=== PATIENT | female | born 1950 | race African-American/Black ===

== ENCOUNTER 2021-04-02 19:32 | Inpatient (IN) | payer OTHER ==
[2021-04-02 21:19] LABS: BASO % 0.8 % (0-2.0); EOS % 0.5 % (0-4.5); HEMATOCRIT 26.7 % (32.4-45.2); HEMOGLOBIN 8.5 GM/dL (10.7-15.3); LYMPH % 21.1 % (8-40); MCH 26.1 pg (25.7-33.7); MCHC 31.8 g/dl (32.0-36.0); MEAN CELL VOLUME 82.2 fl (80-96); MEAN PLT VOLUME 8.1 fl (7.5-11.1); MONO % 6.7 % (3.8-10.2); NEUT % 70.9 % (42.8-82.8); PLATELET COUNT 591 10^3/uL (134-434); RBC 3.25 M/mm3 (3.60-5.2); WHITE BLOOD COUNT 15.5 K/mm3 (4.0-10.0)
[2021-04-02] MEDS ORDERED: VANCOMYCIN 1 GM in D5W (PRE-DOCKED) 1,000 MG/250 ML IVPB ONE (21:30)
[2021-04-02] MEDS ORDERED: PIPERACILLIN/TAZOB 4.5 GM 4.5 GM in DEXTROSE 5%-WATER 100 ML IVPB ONE (21:30)
[2021-04-02 21:33] LABS: INR 1.05 (0.83-1.09); PROTHROMBIN TIME (PATIENT) 11.8 SEC (9.7-13.0)
[2021-04-02] MEDS ORDERED: SODIUM CHLORIDE 0.9% 500 ML INFUS.BAG IV ONE (21:33)
[2021-04-02 21:36] LABS: ACTIVATED PTT 24.8 SECONDS (25.2-36.5)
[2021-04-02 21:39] LABS: CALCIUM 10.8 mg/dL (8.5-10.1)
[2021-04-02 21:40] LABS: ALBUMIN 2.2 g/dl (3.4-5.0); BLOOD UREA NITROGEN 30.7 mg/dL (7-18)
[2021-04-02 21:43] LABS: CREATININE 0.7 mg/dL (0.55-1.3)
[2021-04-02 21:44] LABS: BILIRUBIN,TOTAL 0.5 mg/dL (0.2-1)
[2021-04-02] MEDS ORDERED: PIPERACILLIN/TAZOB 4.5 GM 4.5 GM/100 ML BAG IVPB ONE (22:03)
[2021-04-02] MEDS ORDERED: VANCOMYCIN 1 GRAM (PRE-DOCKED) 1,000 MG/250 ML BAG IVPB ONE (22:03)
[2021-04-02 22:45] LABS: EPI CELLS 26 /uL (0-25.1); HYALINE CASTS 0 /uL (0-3.1); PH,URINE 8.5 (5.0-8.0); URINE APPEARANCE CLEAR; URINE BACTERIA 4985 /uL (0-1359); URINE BILIRUBIN NEGATIVE (NEGATIVE); URINE COLOR YELLOW; URINE GLUCOSE (UA) NEGATIVE (NEGATIVE); URINE KETONE NEGATIVE (NEGATIVE); URINE LEUK ESTERASE 1+ (NEGATIVE); URINE NITRITE POSITIVE (NEGATIVE); URINE PROTEIN TRACE (NEGATIVE); URINE RBC 169 /uL (0-23.9); URINE UROBILINOGEN 0.2 mg/dL (0.2-1.0); URINE WBC 43 /uL (0-25.8)
[2021-04-02] MEDS ORDERED: ACETAMINOPHEN 1000 MG/100 ML VIAL IVPB PRN (22:57)
[2021-04-03] MEDS ORDERED: ALBUTEROL SO4 2.5/IPRATROPIUM 0.5 INH SOL 3 ML VIAL.NEB. NEB PRN (02:39)
[2021-04-03 04:43] VITALS: BMI 18.6
[2021-04-03] MEDS ORDERED: PIPERACILLIN/TAZOBACTAM 4.5 GM VIAL IVPB ONE ×3 (05:48→21:00)
[2021-04-03] MEDS ORDERED: DEXTROSE 5%-WATER 100 ML IVPB ONE ×3 (05:48→21:00)
[2021-04-03] MEDS: PIPERACILLIN/TAZOB 4.5 GM 4.5 GM in DEXTROSE 5%-WATER 100 ML IVPB SCH ×3 (05:49→21:08)
[2021-04-03 08:30] LABS: EOS % 0.7 % (0-4.5); HEMATOCRIT 23.1 % (32.4-45.2); HEMOGLOBIN 7.2 GM/dL (10.7-15.3); LYMPH % 20.5 % (8-40); MCH 26.2 pg (25.7-33.7); MCHC 31.1 g/dl (32.0-36.0); MEAN CELL VOLUME 84.1 fl (80-96); MEAN PLT VOLUME 8.4 fl (7.5-11.1); MONO % 7.7 % (3.8-10.2); NEUT % 70.1 % (42.8-82.8); PLATELET COUNT 561 10^3/uL (134-434); RBC 2.74 M/mm3 (3.60-5.2); RDW 18.6 % (11.6-15.6); WHITE BLOOD COUNT 11.8 K/mm3 (4.0-10.0)
[2021-04-03 09:02] LABS: CALCIUM 10.3 mg/dL (8.5-10.1)
[2021-04-03 09:04] LABS: ALBUMIN 1.9 g/dl (3.4-5.0)
[2021-04-03 09:05] LABS: BILIRUBIN,TOTAL 0.5 mg/dL (0.2-1)
[2021-04-03 09:06] LABS: CREATININE 0.7 mg/dL (0.55-1.3); TOT PROT 6.8 g/dl (6.4-8.2)
[2021-04-03 09:07] LABS: BILIRUBIN,DIRECT 0.2 mg/dL (0.0-0.2)
[2021-04-03] MEDS ORDERED: ZINC SULFATE 220 MG TABLET GT SCH (10:00)
[2021-04-03] MEDS ORDERED: VANCOMYCIN 1 GM in D5W (PRE-DOCKED) 1,000 MG/250 ML IVPB SCH (10:00)
[2021-04-03] MEDS: LOSARTAN POTASSIUM 50 MG TABLET GT SCH (12:44)
[2021-04-03] MEDS: METOPROLOL TARTRATE 50 MG TABLET (FP) GT SCH ×2 (12:45→21:37)
[2021-04-03] MEDS: ENOXAPARIN NA (PORCINE) 30 MG/0.3 ML DISP.SYRIN SQ SCH (12:45)
[2021-04-03] MEDS: ASCORBIC ACID 500 MG TABLET (FP) GT SCH (12:45)
[2021-04-03] MEDS: ASPIRIN 81 MG CHEWABLE TABLETS GT SCH (12:45)
[2021-04-03] MEDS: FUROSEMIDE 20 MG TABLET (FP) GT SCH (12:46)
[2021-04-03] MEDS: buPROPion HCL 75 MG TABLET GT SCH ×2 (15:18→21:47)
[2021-04-03] MEDS: TICAGRELOR 90 MG TABLET PO SCH ×2 (15:19→21:40)
[2021-04-03] MEDS: FAMOTIDINE 40 MG/5 ML ORAL SUSPENSION PEG SCH (15:20)
[2021-04-03] MEDS: ACETAMINOPHEN 650 MG/20.3 ML ORAL SOLUTION (CUPS) PO PRN (15:35)
[2021-04-03] MEDS ORDERED: QUEtiapine FUMARATE 25 MG TABLET ONE (21:00)
[2021-04-03] MEDS: MIRTAZAPINE 15 MG TABLET (FP) GT SCH (21:39)
[2021-04-03] MEDS: ATORVASTATIN CA 80 MG TABLET (FP) GT SCH (21:39)
[2021-04-03] MEDS: QUEtiapine FUMARATE 25 MG TABLET GT SCH (21:42)
[2021-04-03] MEDS ORDERED: MIRTAZAPINE 30 MG TABLET PO SCH (22:00)
[2021-04-03] MEDS ORDERED: QUEtiapine FUMARATE 50 MG TABLET GT SCH (22:00)
[2021-04-03] MEDS ORDERED: ZINC SULFATE 220 MG CAPSULE (FP) GT SCH (22:44)
[2021-04-04] MEDS ORDERED: DEXTROSE 5%-WATER 100 ML IVPB ONE ×3 (03:45→17:06)
[2021-04-04] MEDS ORDERED: PIPERACILLIN/TAZOBACTAM 4.5 GM VIAL IVPB ONE ×3 (03:45→17:06)
[2021-04-04] MEDS: PIPERACILLIN/TAZOB 4.5 GM 4.5 GM in DEXTROSE 5%-WATER 100 ML IVPB SCH ×3 (03:46→17:42)
[2021-04-04 09:38] LABS: BASO % 1.4 % (0-2.0); EOS % 2.9 % (0-4.5); HEMOGLOBIN 9.3 GM/dL (10.7-15.3); LYMPH % 21.1 % (8-40); MCH 28.1 pg (25.7-33.7); MCHC 34.2 g/dl (32.0-36.0); MEAN PLT VOLUME 8.3 fl (7.5-11.1); MONO % 8.4 % (3.8-10.2); NEUT % 66.2 % (42.8-82.8); PLATELET COUNT 519 10^3/uL (134-434); RDW 16.7 % (11.6-15.6); RETICULOCYTES 2.46 % (0.5-1.5); WHITE BLOOD COUNT 9.7 K/mm3 (4.0-10.0)
[2021-04-04 11:29] LABS: BLOOD UREA NITROGEN 26.7 mg/dL (7-18); CALCIUM 9.4 mg/dL (8.5-10.1)
[2021-04-04 11:32] LABS: CREATININE 0.9 mg/dL (0.55-1.3)
[2021-04-04 11:33] LABS: BILIRUBIN,TOTAL 0.8 mg/dL (0.2-1)
[2021-04-04] MEDS: LOSARTAN POTASSIUM 50 MG TABLET GT SCH (12:00)
[2021-04-04] MEDS: FUROSEMIDE 20 MG TABLET (FP) GT SCH (12:00)
[2021-04-04] MEDS: MULTIVITAMINS (DAILY MVI) TABLET (FP) PO SCH (12:00)
[2021-04-04] MEDS: METOPROLOL TARTRATE 50 MG TABLET (FP) GT SCH ×2 (12:00→23:26)
[2021-04-04] MEDS: ASPIRIN 81 MG CHEWABLE TABLETS GT SCH (12:00)
[2021-04-04] MEDS: AMINO ACIDS/PROTEIN HYDROLYS 30 ML LIQUID.PKT PEG SCH (12:00)
[2021-04-04] MEDS: ZINC SULFATE 220 MG CAPSULE (FP) GT SCH (12:01)
[2021-04-04] MEDS: FAMOTIDINE 40 MG/5 ML ORAL SUSPENSION PEG SCH (12:01)
[2021-04-04] MEDS: ENOXAPARIN NA (PORCINE) 30 MG/0.3 ML DISP.SYRIN SQ SCH (12:02)
[2021-04-04] MEDS: buPROPion HCL 75 MG TABLET GT SCH ×2 (12:02→23:28)
[2021-04-04] MEDS: ASCORBIC ACID 500 MG TABLET (FP) GT SCH (12:02)
[2021-04-04] MEDS: TICAGRELOR 90 MG TABLET PO SCH ×2 (12:39→23:27)
[2021-04-04] MEDS: QUEtiapine FUMARATE 25 MG TABLET GT SCH (23:26)
[2021-04-04] MEDS: MIRTAZAPINE 15 MG TABLET (FP) GT SCH (23:27)
[2021-04-04] MEDS: ATORVASTATIN CA 80 MG TABLET (FP) GT SCH (23:27)
[2021-04-05] MEDS ORDERED: DEXTROSE 5%-WATER 100 ML IVPB ONE ×2 (03:12→10:27)
[2021-04-05] MEDS ORDERED: PIPERACILLIN/TAZOBACTAM 4.5 GM VIAL IVPB ONE ×2 (03:12→10:27)
[2021-04-05] MEDS: PIPERACILLIN/TAZOB 4.5 GM 4.5 GM in DEXTROSE 5%-WATER 100 ML IVPB SCH ×2 (03:13→11:50)
[2021-04-05 09:26] LABS: CALCIUM 9.2 mg/dL (8.5-10.1); MCH 27.5 pg (25.7-33.7); MCHC 33.2 g/dl (32.0-36.0); MEAN CELL VOLUME 82.8 fl (80-96); MEAN PLT VOLUME 8.5 fl (7.5-11.1); PLATELET COUNT 475 10^3/uL (134-434); RBC 3.26 M/mm3 (3.60-5.2); RDW 17.7 % (11.6-15.6)
[2021-04-05 09:27] LABS: ALBUMIN 1.9 g/dl (3.4-5.0)
[2021-04-05 09:32] LABS: BILIRUBIN,TOTAL 0.5 mg/dL (0.2-1); TOT PROT 6.9 g/dl (6.4-8.2)
[2021-04-05 09:37] LABS: BLOOD UREA NITROGEN 26.8 mg/dL (7-18)
[2021-04-05] MEDS ORDERED: PT OWN MED DRAWER 7, Y5N ONE ×2 (10:26→21:38)
[2021-04-05] MEDS: ASCORBIC ACID 500 MG TABLET (FP) GT SCH (11:06)
[2021-04-05] MEDS: ASPIRIN 81 MG CHEWABLE TABLETS GT SCH (11:06)
[2021-04-05] MEDS: AMINO ACIDS/PROTEIN HYDROLYS 30 ML LIQUID.PKT PEG SCH (11:06)
[2021-04-05] MEDS: ZINC SULFATE 220 MG CAPSULE (FP) GT SCH (11:06)
[2021-04-05] MEDS: buPROPion HCL 75 MG TABLET GT SCH ×2 (11:07→22:03)
[2021-04-05] MEDS: LOSARTAN POTASSIUM 50 MG TABLET GT SCH (11:07)
[2021-04-05] MEDS: METOPROLOL TARTRATE 50 MG TABLET (FP) GT SCH ×2 (11:07→22:03)
[2021-04-05] MEDS: ENOXAPARIN NA (PORCINE) 30 MG/0.3 ML DISP.SYRIN SQ SCH (11:07)
[2021-04-05] MEDS: FUROSEMIDE 20 MG TABLET (FP) GT SCH (11:07)
[2021-04-05] MEDS: MULTIVITAMINS (DAILY MVI) TABLET (FP) PO SCH (11:07)
[2021-04-05] MEDS: POTASSIUM CHLORIDE ORAL LIQUID 20 MEQ/15 ML PO SCH ×2 (11:08→22:05)
[2021-04-05] MEDS: TICAGRELOR 90 MG TABLET PO SCH ×2 (11:08→22:04)
[2021-04-05] MEDS: FAMOTIDINE 40 MG/5 ML ORAL SUSPENSION PEG SCH (11:08)
[2021-04-05] MEDS: KCL 10 MEQ IVPB 10 MEQ/100 ML INFUS.BAG IVPB SCH ×2 (11:38→13:20)
[2021-04-05] MEDS: SODIUM CHLORIDE 0.45% 1,000 ML IV SCH (17:58)
[2021-04-05] MEDS: QUEtiapine FUMARATE 25 MG TABLET GT SCH (22:02)
[2021-04-05] MEDS: MIRTAZAPINE 15 MG TABLET (FP) GT SCH (22:02)
[2021-04-05] MEDS: ATORVASTATIN CA 80 MG TABLET (FP) GT SCH (22:03)
[2021-04-05] MEDS: SULFAMETHOXAZOLE/TMP 200MG-40MG/5ML GT SCH (22:09)
[2021-04-06] MEDS: SODIUM CHLORIDE 0.45% 1,000 ML IV SCH ×2 (05:05→22:01)
[2021-04-06] MEDS: MULTIVITAMINS (DAILY MVI) TABLET (FP) PO SCH (09:34)
[2021-04-06] MEDS: ASCORBIC ACID 500 MG TABLET (FP) GT SCH (09:34)
[2021-04-06] MEDS: ASPIRIN 81 MG CHEWABLE TABLETS GT SCH (09:34)
[2021-04-06] MEDS: AMINO ACIDS/PROTEIN HYDROLYS 30 ML LIQUID.PKT PEG SCH (09:34)
[2021-04-06] MEDS: LOSARTAN POTASSIUM 50 MG TABLET GT SCH (09:35)
[2021-04-06] MEDS: FUROSEMIDE 20 MG TABLET (FP) GT SCH (09:35)
[2021-04-06] MEDS: METOPROLOL TARTRATE 50 MG TABLET (FP) GT SCH ×2 (09:35→22:03)
[2021-04-06] MEDS: buPROPion HCL 75 MG TABLET GT SCH ×2 (09:36→22:03)
[2021-04-06] MEDS: POTASSIUM CHLORIDE ORAL LIQUID 20 MEQ/15 ML PO SCH (09:36)
[2021-04-06] MEDS: TICAGRELOR 90 MG TABLET PO SCH ×2 (09:36→22:02)
[2021-04-06] MEDS: FAMOTIDINE 40 MG/5 ML ORAL SUSPENSION PEG SCH (09:37)
[2021-04-06] MEDS: ENOXAPARIN NA (PORCINE) 30 MG/0.3 ML DISP.SYRIN SQ SCH (09:40)
[2021-04-06] MEDS: SULFAMETHOXAZOLE/TMP 200MG-40MG/5ML GT SCH ×2 (09:41→22:02)
[2021-04-06] MEDS: ZINC SULFATE 220 MG CAPSULE (FP) GT SCH (09:42)
[2021-04-06 10:01] LABS: CALCIUM 9.6 mg/dL (8.5-10.1)
[2021-04-06 10:05] LABS: CREATININE 0.8 mg/dL (0.55-1.3)
[2021-04-06] MEDS ORDERED: PT OWN MED DRAWER 7, Y5N ONE (21:52)
[2021-04-06] MEDS: MIRTAZAPINE 15 MG TABLET (FP) GT SCH (22:03)
[2021-04-06] MEDS: ATORVASTATIN CA 80 MG TABLET (FP) GT SCH (22:03)
[2021-04-06] MEDS: QUEtiapine FUMARATE 25 MG TABLET GT SCH (22:03)
[2021-04-07 09:51] LABS: CALCIUM 8.7 mg/dL (8.5-10.1)
[2021-04-07 09:52] LABS: ALBUMIN 1.7 g/dl (3.4-5.0); BLOOD UREA NITROGEN 21.6 mg/dL (7-18)
[2021-04-07 09:55] LABS: CREATININE 0.8 mg/dL (0.55-1.3)
[2021-04-07 09:56] LABS: BILIRUBIN,TOTAL 0.4 mg/dL (0.2-1); TOT PROT 6.2 g/dl (6.4-8.2)
[2021-04-07] MEDS ORDERED: PT OWN MED DRAWER 7, Y5N ONE ×3 (10:35→22:03)
[2021-04-07] MEDS: ZINC SULFATE 220 MG CAPSULE (FP) GT SCH (10:53)
[2021-04-07] MEDS: AMINO ACIDS/PROTEIN HYDROLYS 30 ML LIQUID.PKT PEG SCH (10:53)
[2021-04-07] MEDS: MULTIVITAMINS (DAILY MVI) TABLET (FP) PO SCH (10:53)
[2021-04-07] MEDS: METOPROLOL TARTRATE 50 MG TABLET (FP) GT SCH ×2 (10:53→22:06)
[2021-04-07] MEDS: SODIUM CHLORIDE 0.45% 1,000 ML IV SCH ×2 (10:53→18:53)
[2021-04-07] MEDS: LOSARTAN POTASSIUM 50 MG TABLET GT SCH (10:54)
[2021-04-07] MEDS: ASPIRIN 81 MG CHEWABLE TABLETS GT SCH (10:54)
[2021-04-07] MEDS: FUROSEMIDE 20 MG TABLET (FP) GT SCH (10:54)
[2021-04-07] MEDS: ENOXAPARIN NA (PORCINE) 30 MG/0.3 ML DISP.SYRIN SQ SCH (10:54)
[2021-04-07] MEDS: ASCORBIC ACID 500 MG TABLET (FP) GT SCH (10:54)
[2021-04-07] MEDS: SULFAMETHOXAZOLE/TMP 200MG-40MG/5ML GT SCH ×2 (10:55→22:07)
[2021-04-07] MEDS: FAMOTIDINE 40 MG/5 ML ORAL SUSPENSION PEG SCH (10:55)
[2021-04-07] MEDS: buPROPion HCL 75 MG TABLET GT SCH ×2 (10:55→22:11)
[2021-04-07] MEDS: TICAGRELOR 90 MG TABLET PO SCH ×2 (10:56→22:07)
[2021-04-07] MEDS: ACETAMINOPHEN 650 MG/20.3 ML ORAL SOLUTION (CUPS) PO PRN ×2 (10:56→22:18)
[2021-04-07] MEDS: ATORVASTATIN CA 80 MG TABLET (FP) GT SCH (22:06)
[2021-04-07] MEDS: QUEtiapine FUMARATE 25 MG TABLET GT SCH (22:06)
[2021-04-07] MEDS: MIRTAZAPINE 15 MG TABLET (FP) GT SCH (22:06)
[2021-04-08 09:25] LABS: BLOOD UREA NITROGEN 26.3 mg/dL (7-18); CALCIUM 8.7 mg/dL (8.5-10.1)
[2021-04-08] MEDS ORDERED: PT OWN MED DRAWER 7, Y5N ONE ×3 (10:02→23:03)
[2021-04-08] MEDS: MULTIVITAMINS (DAILY MVI) TABLET (FP) PO SCH (10:10)
[2021-04-08] MEDS: ASPIRIN 81 MG CHEWABLE TABLETS GT SCH (10:10)
[2021-04-08] MEDS: buPROPion HCL 75 MG TABLET GT SCH ×2 (10:10→22:40)
[2021-04-08] MEDS: FUROSEMIDE 20 MG TABLET (FP) GT SCH (10:10)
[2021-04-08] MEDS: ZINC SULFATE 220 MG CAPSULE (FP) GT SCH (10:10)
[2021-04-08] MEDS: TICAGRELOR 90 MG TABLET PO SCH ×2 (10:10→22:40)
[2021-04-08] MEDS: ASCORBIC ACID 500 MG TABLET (FP) GT SCH (10:11)
[2021-04-08] MEDS: FAMOTIDINE 40 MG/5 ML ORAL SUSPENSION PEG SCH (10:11)
[2021-04-08] MEDS: LOSARTAN POTASSIUM 50 MG TABLET GT SCH (10:11)
[2021-04-08] MEDS: SULFAMETHOXAZOLE/TMP 200MG-40MG/5ML GT SCH (10:11)
[2021-04-08] MEDS: METOPROLOL TARTRATE 50 MG TABLET (FP) GT SCH ×2 (10:11→22:39)
[2021-04-08] MEDS: ENOXAPARIN NA (PORCINE) 30 MG/0.3 ML DISP.SYRIN SQ SCH (10:12)
[2021-04-08] MEDS: AMINO ACIDS/PROTEIN HYDROLYS 30 ML LIQUID.PKT PEG SCH (10:18)
[2021-04-08] MEDS: ATORVASTATIN CA 80 MG TABLET (FP) GT SCH (22:39)
[2021-04-08] MEDS: MIRTAZAPINE 15 MG TABLET (FP) GT SCH (22:39)
[2021-04-08] MEDS: QUEtiapine FUMARATE 25 MG TABLET GT SCH (22:40)
[2021-04-09 09:11] LABS: BASO % 0.6 % (0-2.0); EOS % 3.9 % (0-4.5); HEMATOCRIT 27.5 % (32.4-45.2); HEMOGLOBIN 9.1 GM/dL (10.7-15.3); LYMPH % 25.6 % (8-40); MCH 28.1 pg (25.7-33.7); MCHC 33.2 g/dl (32.0-36.0); MEAN CELL VOLUME 84.6 fl (80-96); MONO % 9.1 % (3.8-10.2); NEUT % 60.8 % (42.8-82.8); PLATELET COUNT 474 10^3/uL (134-434); RBC 3.25 M/mm3 (3.60-5.2); RDW 19.1 % (11.6-15.6); WHITE BLOOD COUNT 9.2 K/mm3 (4.0-10.0)
[2021-04-09 09:58] LABS: BLOOD UREA NITROGEN 24.1 mg/dL (7-18); CALCIUM 9.2 mg/dL (8.5-10.1)
[2021-04-09] MEDS ORDERED: PNEUMOC 13-VAL CONJ-DIP CRM/PF 0.5 ML DISP.SYRIN IM ONE (10:00)
[2021-04-09 10:01] LABS: CREATININE 0.9 mg/dL (0.55-1.3)
[2021-04-09] MEDS ORDERED: PT OWN MED DRAWER 7, Y5N ONE (10:33)
[2021-04-09] MEDS: ZINC SULFATE 220 MG CAPSULE (FP) GT SCH (10:59)
[2021-04-09] MEDS: MULTIVITAMINS (DAILY MVI) TABLET (FP) PO SCH (10:59)
[2021-04-09] MEDS: AMINO ACIDS/PROTEIN HYDROLYS 30 ML LIQUID.PKT PEG SCH (10:59)
[2021-04-09] MEDS: FUROSEMIDE 20 MG TABLET (FP) GT SCH (10:59)
[2021-04-09] MEDS: METOPROLOL TARTRATE 50 MG TABLET (FP) GT SCH ×2 (10:59→21:30)
[2021-04-09] MEDS: ASPIRIN 81 MG CHEWABLE TABLETS GT SCH (11:00)
[2021-04-09] MEDS: ASCORBIC ACID 500 MG TABLET (FP) GT SCH (11:00)
[2021-04-09] MEDS: buPROPion HCL 75 MG TABLET GT SCH ×2 (11:00→21:30)
[2021-04-09] MEDS: FAMOTIDINE 40 MG/5 ML ORAL SUSPENSION PEG SCH (11:01)
[2021-04-09] MEDS: TICAGRELOR 90 MG TABLET PO SCH ×2 (11:01→21:30)
[2021-04-09] MEDS: LOSARTAN POTASSIUM 50 MG TABLET GT SCH (11:02)
[2021-04-09] MEDS: ENOXAPARIN NA (PORCINE) 30 MG/0.3 ML DISP.SYRIN SQ SCH (11:27)
[2021-04-09] MEDS: ATORVASTATIN CA 80 MG TABLET (FP) GT SCH (21:30)
[2021-04-09] MEDS: QUEtiapine FUMARATE 25 MG TABLET GT SCH (21:30)
[2021-04-09] MEDS: MIRTAZAPINE 15 MG TABLET (FP) GT SCH (21:30)
[2021-04-10] MEDS ORDERED: PT OWN MED DRAWER 7, Y5N ONE ×3 (12:06→21:32)
[2021-04-10] MEDS: ASCORBIC ACID 500 MG TABLET (FP) GT SCH (12:13)
[2021-04-10] MEDS: AMINO ACIDS/PROTEIN HYDROLYS 30 ML LIQUID.PKT PEG SCH (12:13)
[2021-04-10] MEDS: FUROSEMIDE 20 MG TABLET (FP) GT SCH (12:13)
[2021-04-10] MEDS: ENOXAPARIN NA (PORCINE) 30 MG/0.3 ML DISP.SYRIN SQ SCH (12:13)
[2021-04-10] MEDS: TICAGRELOR 90 MG TABLET PO SCH ×2 (12:14→21:37)
[2021-04-10] MEDS: FAMOTIDINE 40 MG/5 ML ORAL SUSPENSION PEG SCH (12:14)
[2021-04-10] MEDS: ASPIRIN 81 MG CHEWABLE TABLETS GT SCH (12:14)
[2021-04-10] MEDS: MULTIVITAMINS (DAILY MVI) TABLET (FP) PO SCH (12:14)
[2021-04-10] MEDS: ZINC SULFATE 220 MG CAPSULE (FP) GT SCH (12:14)
[2021-04-10] MEDS: LOSARTAN POTASSIUM 50 MG TABLET GT SCH (12:14)
[2021-04-10] MEDS: METOPROLOL TARTRATE 50 MG TABLET (FP) GT SCH ×2 (12:14→21:37)
[2021-04-10] MEDS: buPROPion HCL 75 MG TABLET GT SCH ×2 (12:15→21:37)
[2021-04-10] MEDS: QUEtiapine FUMARATE 25 MG TABLET GT SCH (21:37)
[2021-04-10] MEDS: MIRTAZAPINE 15 MG TABLET (FP) GT SCH (21:37)
[2021-04-10] MEDS: ATORVASTATIN CA 80 MG TABLET (FP) GT SCH (21:37)
[2021-04-11] MEDS ORDERED: PT OWN MED DRAWER 7, Y5N ONE (09:34)
[2021-04-11] MEDS: ENOXAPARIN NA (PORCINE) 30 MG/0.3 ML DISP.SYRIN SQ SCH (09:36)
[2021-04-11] MEDS: AMINO ACIDS/PROTEIN HYDROLYS 30 ML LIQUID.PKT PEG SCH (09:36)
[2021-04-11] MEDS: ASPIRIN 81 MG CHEWABLE TABLETS GT SCH (09:36)
[2021-04-11] MEDS: FUROSEMIDE 20 MG TABLET (FP) GT SCH (09:36)
[2021-04-11] MEDS: ZINC SULFATE 220 MG CAPSULE (FP) GT SCH (09:36)
[2021-04-11] MEDS: METOPROLOL TARTRATE 50 MG TABLET (FP) GT SCH (09:36)
[2021-04-11] MEDS: MULTIVITAMINS (DAILY MVI) TABLET (FP) PO SCH (09:36)
[2021-04-11] MEDS: LOSARTAN POTASSIUM 50 MG TABLET GT SCH (09:37)
[2021-04-11] MEDS: ASCORBIC ACID 500 MG TABLET (FP) GT SCH (09:37)
[2021-04-11] MEDS: FAMOTIDINE 40 MG/5 ML ORAL SUSPENSION PEG SCH (09:37)
[2021-04-11] MEDS: TICAGRELOR 90 MG TABLET PO SCH (09:39)
[2021-04-11] MEDS: buPROPion HCL 75 MG TABLET GT SCH (09:39)
[2021-04-11 09:59] VITALS: PULSE 76; TEMP 99.1
[2021-04-11 11:22] VITALS: BP 144/77
== END 2021-04-11 11:48 | DRG 919 ==
LOC: JER 19:32 → JERBED 21:04 → J5S 04-03 03:38
PROVIDERS: ADMIT Internal Medicine; ATTEND Family Medicine
PROC: 5A1955Z Respiratory Ventilation, Greater than 96 Consecutive Hours (ICD-10-PCS; 2021-04-02)
PROC: 0F9430Z Drainage of Gallbladder with Drainage Device, Percutaneous Approach (ICD-10-PCS; principal; 2021-04-03)
DX: T85.528A Displacement of other gastrointestinal prosthetic devices, implants and grafts, initial encounter (principal); L89.154 Pressure ulcer of sacral region, stage 4; J18.9 Pneumonia, unspecified organism; E43 Unspecified severe protein-calorie malnutrition; R53.2 Functional quadriplegia; T83.020A Displacement of cystostomy catheter, initial encounter; N39.0 Urinary tract infection, site not specified; J90 Pleural effusion, not elsewhere classified; J96.10 Chronic respiratory failure, unspecified whether with hypoxia or hypercapnia; I69.354 Hemiplegia and hemiparesis following cerebral infarction affecting left non-dominant side; Z99.11 Dependence on respirator [ventilator] status; Z68.1 Body mass index [BMI] 19.9 or less, adult; B96.1 Klebsiella pneumoniae [K. pneumoniae] as the cause of diseases classified elsewhere; I10 Essential (primary) hypertension; K80.20 Calculus of gallbladder without cholecystitis without obstruction; R94.5 Abnormal results of liver function studies; I25.10 Atherosclerotic heart disease of native coronary artery without angina pectoris; I71.4 Abdominal aortic aneurysm, without rupture; J44.9 Chronic obstructive pulmonary disease, unspecified; M17.12 Unilateral primary osteoarthritis, left knee; M25.462 Effusion, left knee; K21.9 Gastro-esophageal reflux disease without esophagitis; D46.9 Myelodysplastic syndrome, unspecified; D63.8 Anemia in other chronic diseases classified elsewhere; H26.9 Unspecified cataract; F32.A Depression, unspecified; K83.8 Other specified diseases of biliary tract; M79.605 Pain in left leg; Z85.00 Personal history of malignant neoplasm of unspecified digestive organ; Z85.43 Personal history of malignant neoplasm of ovary; Z93.0 Tracheostomy status; Y83.8 Other surgical procedures as the cause of abnormal reaction of the patient, or of later complication, without mention of misadventure at the time of the procedure
CPT/HCPCS: 36415; 36430; 47490; 71045-TC-FY; 73560-TC-LT-FY; 73590-TC-LT-FY; 74018-TC-FY; 76705-TC; 80048; 80053; 80076; 81003; 82728; 82784; 83540; 83550; 84155; 84165; 85025; 85027; 85045; 85610; 85730; 86140; 86334; 86850; 86900; 86901; 86922; 87040; 87086; 87186; 90670; 93005; 93010; 93971-TC; 94002; 97161-GP; 99285-25; C9803; P9058; U0003; U0005